=== PATIENT | female | born 1950 | race Caucasian/White ===

== ENCOUNTER 2018-07-12 14:41 | Inpatient (IN) | payer MEDICARE, OTHER ==
[~2018-07-12] VITALS: Ht 157.5 cm; Wt 71.2 kg
--- NOTE | ~2018-07-12 | CON ---
[address] [address] CONSULTATION Name: DEJONJAYDON Cally Room: [address] IN [facility]#: [id number] Admission: 07/12/18 Attend Phys: Benjamin Wilder, Discharge: Date of : 52 Report #: [id number] THIS REPORT FOR: //name// CC: Christiane Wilder DATE OF SERVICE: 07/14/2018 HISTORY OF PRESENT ILLNESS: A pleasant 68-year-old female, with past medical history significant for asthma, gastroesophageal reflux disease, was referred to admission by Dr. Fontanez for diverticular abscess. The patient has a known history of diverticulitis and presented with lower abdominal pain for the last 3 days. The patient reports associated nausea, but there was no vomiting, diarrhea, change in bowel habits or recent weight loss. The patient denies any fevers, chills or dizziness. PAST MEDICAL HISTORY: Gastroesophageal reflux disease, asthma, diverticulosis. PAST SURGICAL HISTORY: The patient had hysterectomy, carpal tunnel surgery, right wrist surgery in the remote past. SOCIAL HISTORY: The patient denies smoking, takes alcohol only occasionally and denies any recreational drug use. FAMILY HISTORY: There is no family history of colorectal cancer or Reza related neoplasia. REVIEW OF SYSTEMS: A comprehensive 10-point review of systems is negative except for what was mentioned in the HPI. PHYSICAL EXAMINATION: VITAL SIGNS: Temperature 36.4, pulse rate 77, respiratory rate 20, blood pressure 112/63. GENERAL: The patient is alert, awake, oriented x 3. HEENT: Pupils are equal, round, reactive to light and accommodation. Mucous membranes are moist. There is no congestion. LUNGS: Clear to auscultation bilaterally. CARDIOVASCULAR: Rate and rhythm regular. S1, S2 present. ABDOMEN: Soft. There is no distention, guarding or rigidity. EXTREMITIES: Warm and well perfused. There is no edema. SKIN: Warm and dry. LABORATORY DATA: Hemoglobin 11.7, hematocrit 35.8, platelet count 173, WBC count 4.6. Sodium 142, potassium 3.6, chloride 107, bicarbonate 22, BUN 6, creatinine 0.8. Total bilirubin 0.2, AST 15, ALT 29, alkaline phosphatase 68[place] [address] CONSULTATION Name: JAYDON ASHFORD Room: [address]#: [id number] Admission: 07/12/18 Attend Phys: Benjamin Wilder, Discharge: Date of : 52 Report #: [id number] IMAGING STUDIES: The patient has had no imaging inpatient, but outpatient imaging apparently showed a 2-3 cm diverticular abscess. ASSESSMENT AND PLAN: This is a pleasant 68-year-old female, with history of diverticulosis, who is presenting with complicated diverticular disease and diverticular abscess. RECOMMENDATIONS: Would be to get IV antibiotics and repeat CT scan in a few days. If the abscess is not shrinking or is enlarging, we can consider percutaneous drainage, otherwise a course of antibiotic should be completed. The patient will need a colonoscopy in 6-8 week time for followup and after this, a sigmoid colectomy can be considered. The patient was seen and examined on 07/14/2018. This note reflects that day of service. Thank you for this consultation. Please do not hesitate to call us with any further questions. By: [id number] Anton MD /nt
[~2018-07-12 14:41] MED LIST: ADVAIR 250-501 EACH; ADVAIR HFA 230M1 AER; ADVAIR HFA 230M12 GM INH; ALBUTEROL2.5 MG/0.1 IH; AVELOX 400 MG400 MG OR; CELEBREX 200 M200 MG PO; CRESTOR10 MG PO; DUONEB 2.5-0.5 M3 ML IH; MEDROLDOSEPACK PO; MULTIVITAMINS PO; PERCOCET 5-3251 EACH PO; PREMARIN0.625 MG PO; PRILOSEC 20 MG20 MG PO; PROAIR HFA8.5 GM; VITAMIN D1000 UNI1
[2018-07-12] MEDS ORDERED: CRESTOR10 MG PO (14:59)
[2018-07-12] MEDS ORDERED: EYE MED (15:00)
[2018-07-12] MEDS ORDERED: PROBIOTIC1 EAC1 PO (15:00)
[2018-07-12] MEDS ORDERED: CO Q-10100 MG PO (15:00)
[2018-07-12] MEDS ORDERED: ZANTAC 150MG T150 MG PO (15:00)
[2018-07-12] MEDS ORDERED: ASPIR 8181 MG PO (15:01)
[2018-07-12 15:31] LABS: ABSOLUTE EOSINOPHILS 0.2 thou/uL (0.0-0.7); ABSOLUTE LYMPHOCYTES 1.4 thou/uL (0.8-5.3); ABSOLUTE MONOCYTES 0.5 thou/uL (0.0-1.2); ABSOLUTE NEUTROPHILS 3.7 thou/uL (1.6-8.1); BASOPHILS 0.3 %; EOSINOPHILS 3.5 %; HEMATOCRIT 37.1 % (37.0-47.0); HEMOGLOBIN 12.6 gm/dL (12.0-15.0); LYMPHOCYTES 24.5 %; MCH 29.2 pg (26.0-34.0); MCHC 33.9 g/dL (28.0-37.0); MCV 86.3 fL (80.0-100.0); MONOCYTES 8.6 %; MPV 8.6 fl. (7.2-11.1); NUCLEATED RBCS 0 /100WBC; PLATELET COUNT* 174 thou/uL (150-400); POLYS 63.1 %; WBC 5.9 thou/uL (4.0-11.0)
[2018-07-12 15:48] LABS: ANION GAP 12 mmol/L (7-16); BUN 15 mg/dL (7-18); CALCIUM 8.9 mg/dL (8.5-10.1); CHLORIDE 103 mmol/L (98-107); CO2 27 mmol/L (21-32); CREATININE 0.8 mg/dL (0.6-1.3); GLUCOSE 64 mg/dL (70-99); POTASSIUM 3.6 mmol/L (3.5-5.1); SODIUM 142 mmol/L (136-145)
[2018-07-12 15:52] LABS: ALBUMIN 3.5 g/dL (3.4-5.0); ALKALINE PHOSPHATASE 112 U/L (46-116); LIPASE 75 U/L (73-393); SGOT 29 U/L (15-37); SGPT 47 U/L (30-65); TOTAL BILIRUBIN 0.4 mg/dL (<0.1-1.0); TOTAL PROTEIN 7.5 g/dL (6.4-8.2); TROPONIN-I LEVEL <0.06 ng/mL (<0.06)
[2018-07-12 17:05] VITALS: BP 111/59
[2018-07-12 17:10] LABS: URINE BILIRUBIN NEGATIVE (Negative); URINE BLOOD NEGATIVE (Negative); URINE CLARITY CLEAR; URINE COLOR YELLOW; URINE GLUCOSE-RANDOM NEGATIVE (Negative); URINE KETONES TRACE (Negative); URINE LEUKOCYTES-REFLEX NEGATIVE (Negative); URINE NITRITE-REFLEX NEGATIVE (Negative); URINE PROTEIN NEGATIVE (Negative); URINE SPECIFIC GRAVITY <= 1.005 (1.005-1.030); URINE UROBILINOGEN 0.2 E.U./dl (0.2-1.0)
[2018-07-12 18:00] VITALS: BP 106/60
[2018-07-12 20:20] VITALS: BP 105/63
[2018-07-13] VITALS: BP 102/56
[2018-07-13 04:00] VITALS: BP 110/51
[2018-07-13 04:32] LABS: ABSOLUTE EOSINOPHILS 0.2 thou/uL (0.0-0.7); ABSOLUTE LYMPHOCYTES 1.4 thou/uL (0.8-5.3); ABSOLUTE MONOCYTES 0.4 thou/uL (0.0-1.2); BASOPHILS 0.4 %; EOSINOPHILS 4.1 %; HEMATOCRIT 33.3 % (37.0-47.0); HEMOGLOBIN 10.9 gm/dL (12.0-15.0); LYMPHOCYTES 28.3 %; MCH 28.7 pg (26.0-34.0); MCHC 32.8 g/dL (28.0-37.0); MCV 87.6 fL (80.0-100.0); MONOCYTES 8.2 %; MPV 8.5 fl. (7.2-11.1); NUCLEATED RBCS 0 /100WBC; PLATELET COUNT* 164 thou/uL (150-400); RDW-CV 14.1 % (10.5-14.5); WBC 5.1 thou/uL (4.0-11.0)
[2018-07-13 05:02] LABS: CREATININE 0.8 mg/dL (0.6-1.3); POTASSIUM 3.5 mmol/L (3.5-5.1)
[2018-07-13 08:40] VITALS: BP 111/56
--- NOTE | 2018-07-13 10:42 | EKG ---
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: [place] : 1950 Requested By: Ortiz Rico Order Number: [id number] MD: Stanislaw Levy Measurements Intervals [place] Rate: 74 P: 17 WA: 120 QRS: 69 QRSD: 103 T: 31 QT: 398 QTc: 442 Interpretive Statements Sinus rhythm Low voltage, extremity and precordial leads Baseline wander in lead(s) I Compared to ECG 02/25/2010 09:41:32 Low QRS voltage now present Electronically Signed On 07-13-2018 10:42:19 CDT by Stanislaw Levy [email or web address] <ELECTRONICALLY SIGNED> By: Stanislaw Levy MD, FAC 07/13/18 1042 [id number] [id number] Stanislaw Levy MD, [facility] /EPI
[2018-07-13 16:33] VITALS: BP 98/55
[2018-07-13 22:00] VITALS: BP 111/62
[2018-07-14 04:30] LABS: HEMATOCRIT 35.8 % (37.0-47.0); HEMOGLOBIN 11.7 gm/dL (12.0-15.0); MCH 28.8 pg (26.0-34.0); MCHC 32.7 g/dL (28.0-37.0); MCV 88.1 fL (80.0-100.0); MPV 8.4 fl. (7.2-11.1); RBC 4.07 mil/uL (4.20-5.00); RDW-CV 13.7 % (10.5-14.5); WBC 4.6 thou/uL (4.0-11.0)
[2018-07-14 07:20] LABS: ALBUMIN 2.8 g/dL (3.4-5.0); CALCIUM 8.6 mg/dL (8.5-10.1); CREATININE 0.8 mg/dL (0.6-1.3); MAGNESIUM 1.6 mg/dL (1.8-2.4); POTASSIUM 4.1 mmol/L (3.5-5.1); TOTAL BILIRUBIN 0.2 mg/dL (<0.1-1.0); TOTAL PROTEIN 6.1 g/dL (6.4-8.2)
[2018-07-14 08:30] VITALS: BP 122/61
[2018-07-14 16:00] VITALS: BP 103/54
[2018-07-14 21:00] VITALS: BP 112/63
[2018-07-15 04:43] LABS: CALCIUM 8.2 mg/dL (8.5-10.1); CREATININE 0.8 mg/dL (0.6-1.3); MAGNESIUM 1.6 mg/dL (1.8-2.4); POTASSIUM 3.6 mmol/L (3.5-5.1)
[2018-07-15 08:15] VITALS: BP 112/68
[2018-07-15 16:00] VITALS: BP 113/68
[2018-07-15 20:40] VITALS: BP 131/78
[2018-07-16 04:35] LABS: HEMOGLOBIN 10.8 gm/dL (12.0-15.0); MCH 28.8 pg (26.0-34.0); MCHC 33.6 g/dL (28.0-37.0); MCV 85.9 fL (80.0-100.0); MPV 8.2 fl. (7.2-11.1); RBC 3.73 mil/uL (4.20-5.00); RDW-CV 14.1 % (10.5-14.5); WBC 4.3 thou/uL (4.0-11.0)
[2018-07-16 05:23] LABS: ALBUMIN 2.6 g/dL (3.4-5.0); CALCIUM 8.1 mg/dL (8.5-10.1); CREATININE 0.6 mg/dL (0.6-1.3); POTASSIUM 3.1 mmol/L (3.5-5.1); TOTAL BILIRUBIN 0.1 mg/dL (<0.1-1.0); TOTAL PROTEIN 5.5 g/dL (6.4-8.2)
[2018-07-16 08:00] VITALS: BP 124/70
[2018-07-16 14:10] VITALS: BP 124/70
[2018-07-16] MEDS ORDERED: TYLENOL325 MG PO (14:21)
[2018-07-16] MEDS ORDERED: COLACE100 MG PO (14:22)
[2018-07-16] MEDS ORDERED: ZOFRAN ODT4 MG PO (14:25)
[2018-07-16] MEDS ORDERED: FLAGYL500 M1 PO (14:25)
[2018-07-16] MEDS ORDERED: LEVAQUIN 750 M750 MG PO (14:26)
== END 2018-07-16 15:05 | disposition home or self-care (01) | DRG 391 ==
LOC: M.ERS 14:41 → M.TBA-ER 16:14 → M.ORTHSURG 16:14
PROVIDERS: Emergency Medicine Emergency Medical Services; Surgery; ADMIT Family Medicine
DX: K57.20 Diverticulitis of large intestine with perforation and abscess without bleeding (principal); E43 Unspecified severe protein-calorie malnutrition; R71.0 Precipitous drop in hematocrit; M19.90 Unspecified osteoarthritis, unspecified site; J45.909 Unspecified asthma, uncomplicated; Z96.631 Presence of right artificial wrist joint; K21.9 Gastro-esophageal reflux disease without esophagitis; K57.90 Diverticulosis of intestine, part unspecified, without perforation or abscess without bleeding; E87.6 Hypokalemia; E78.5 Hyperlipidemia, unspecified; Z90.710 Acquired absence of both cervix and uterus; Z79.899 Other long term (current) drug therapy; Z79.52 Long term (current) use of systemic steroids; Z88.0 Allergy status to penicillin; Z88.8 Allergy status to other drugs, medicaments and biological substances; Z88.6 Allergy status to analgesic agent; Z68.28 Body mass index [BMI] 28.0-28.9, adult